=== PATIENT | female | born 1995 | race American Indian/Alaskan Native ===

== ENCOUNTER 2021-08-06 23:07 | Emergency (ER) | payer SELFPAY ==
--- NOTE | 2021-08-06 23:49 | Emergency Department Report ---
ED General Adult HPI - General Chief complaint: Psych Stated complaint: MENTAL EVAL Time Seen by Provider: 08/06/21 23:14 Source: patient Mode of arrival: Ambulatory Limitations: No Limitations - History of Present Illness Initial comments: patient presents with complaints of thoughts of hurting/killing herself. Denies a specific plan. Has a hx of bipolar disorder. Denies visual and auditory hallucinations. - Related Data Allergies Allergy/AdvReac Type Severity Reaction Status Date / Time No Known Allergies Allergy Unverified 08/06/21 23:22 ED Review of Systems ROS: Stated complaint: MENTAL EVAL Other details as noted in HPI Comment: All other systems reviewed and negative Constitutional: denies: chills, fever ED Past Medical Hx - Past Medical History Previous Medical History?: Yes Hx Psychiatric Treatment: Yes (BIPOLAR, ADHD, ANXIETY) - Surgical History Past Surgical History?: No - Social History Smoking Status: Never Smoker Substance Use Type: Alcohol ED Physical Exam - General Limitations: No Limitations General appearance: alert, in no apparent distress - Head Head exam: Present: atraumatic, normocephalic - Eye Eye exam: Present: PERRL, EOMI - ENT ENT exam: Present: mucous membranes moist, other (airway patent) - Neck Neck exam: Present: other (supple; no JVD) - Respiratory Respiratory exam: Present: other (good air entry, nml I:E, CTAB, no use of ANN) - Cardiovascular Cardiovascular Exam: Present: regular rate. Absent: rubs, gallop - GI/Abdominal GI/Abdominal exam: Present: soft, normal bowel sounds. Absent: distended, ten derness - Extremities Exam Extremities exam: Present: full ROM. Absent: tenderness - Back Exam Back exam: Present: full ROM. Absent: tenderness - Neurological Exam Neurological exam: Present: alert, oriented X3, CN II-XII intact. Absent: motor sensory deficit - Psychiatric Psychiatric exam: Present: flat affect, suicidal ideation. Absent: homicidal ideation - Skin Skin exam: Present: warm, normal color ED Course Vital Signs 08/06/21 23:13 Temperature 98.2 F Pulse Rate 104 H Respiratory 16 Rate Blood Pressure 136/67 Blood Pressure 136/67 [Right] O2 Sat by Pulse 98 Oximetry ED Medical Decision Making - Lab Data Result diagrams: 08/06/21 23:55 Laboratory Tests 08/06/21 08/06/21 08/06/21 23:55 23:55 23:55 WBC 5.1 RBC 4.71 Hgb 12.7 Hct 40.1 MCV 85 MCH 27 L MCHC 32 RDW 14.5 Plt Count 229 Lymph % (Auto) 30.6 [place] % (Auto) 4.3 Eos % (Auto) 1.0 Baso % (Auto) 0.7 Lymph # (Auto) 1.5 [place] # (Auto) 0.2 Eos # (Auto) 0.0 Baso # (Auto) 0.0 Seg Neutrophils % 63.4 Seg Neutrophils # 3.2 Salicylates < 0.3 L Acetaminophen 5.0 L Plasma/Serum Alcohol 08/06/21 23:55 WBC RBC Hgb Hct MCV MCH MCHC RDW Plt Count Lymph % (Auto) [place] % (Auto) Eos % (Auto) Baso % (Auto) Lymph # (Auto) [place] # (Auto) Eos # (Auto) Baso # (Auto) Seg Neutrophils % Seg Neutrophils # Salicylates Acetaminophen Plasma/Serum Alcohol 0.17 H UA, U tox, CMP all pending - Medical Decision Making 1013 signed. MH consulted. Critical care attestation.: If time is entered above; I have spent that time in minutes in the direct care of this critically ill patient, excluding procedure time. ED Disposition Clinical Impression: Suicidal thoughts, Alcohol intoxication Disposition: 30 STILL A PATIENT Is pt being admited?: No Does the pt Need Aspirin: No Condition: Stable Time of Disposition: 06:00 (Patient care transferred to Dr. Wadsworth (oncoming ER doctor). Sign out was given by me to him. )
[2021-08-07 00:16] LABS: Basophils % (Auto) 0.7 % (0.0-1.8); Hematocrit 40.1 % (30.3-42.9); Hemoglobin 12.7 gm/dl (10.1-14.3); Lymphocytes # (Auto) 1.5 K/mm3 (1.2-5.4); Lymphocytes % (Auto) 30.6 % (13.4-35.0); Mean Corpuscular HGB Conc 32 % (30-34); Mean Corpuscular Volume 85 fl (79-97); Monocytes # (Auto) 0.2 K/mm3 (0.0-0.8); Monocytes % (Auto) 4.3 % (0.0-7.3); Platelet Count 229 K/mm3 (140-440); Red Blood Count 4.71 M/mm3 (3.65-5.03); Red Cell Distribution Width 14.5 % (13.2-15.2)
[2021-08-07] MEDS ORDERED: SODIUM CHLORIDE 0.9% 1000 ML 1,000 ML IV ONE (04:41)
[2021-08-07 06:09] LABS: Bilirubin,Urine NEG (Negative); Blood,Urine NEG (Negative); Color,Urine Yellow (Yellow); Mucus,Urine 2+ /HPF; Protein,Urine <15 mg/dL mg/dL (Negative); Urobilinogen,Urine < 2.0 mg/dL (<2.0)
[2021-08-07 06:10] LABS: Amphetamine Screen,Urine PRESUMPTIVE NEGATIVE; Benzodiazepines Screen,Urine PRESUMPTIVE NEGATIVE; Cannabinoid Screen,Urine PRESUMPTIVE POSITIVE; Cocaine Screen,Urine PRESUMPTIVE NEGATIVE; HCG Qualitative,Urine Negative (Negative); Methadone Screen,Urine PRESUMPTIVE NEGATIVE; Opiate Screen,Urine PRESUMPTIVE NEGATIVE
--- NOTE | 2021-08-07 10:47 | Consultation ---
History of Present Illness - Reason for Consult Consult date: 08/07/21 Reason for consult: mental health evaluation - History of Present Psychiatric Illness The patient is a 25 year old female with history of bipolar, ADHD, and anxiety disorder. In my encounter with the patient, she is calm, alert and oriented x3. The patient reports that she was intoxicated last night. She states that she is visiting on vacation from [place]. She reports being complaint with psychotropic medications; she sees her psychiatrist monthly. She denies any current suicidal/homicidal ideation and denies hallucinations. PAST PSYCHIATRIC HISTORY: Diagnoses: Bipolar, ADHD, Anxiety Suicide attempts or Self-harm behavior: Yes Prior psychiatric hospitalizations: Yes Substance Abuse history:marijuana, Alcohol Previous psychiatric medications tried: Focalin, Cymbalta, Trileptal Outpatient treatment: Unknown PAST MEDICAL HISTORY: None reported Family Psychiatric History: None reported SOCIAL HISTORY Marital Status: Single Living Arrangements: Lives with mother Employment Status: Unknown Access to guns/weapons: Denies Education: 12th grade History of Abuse: Denies Legal History:Unknown REVIEW OF SYSTEMS Constitutional: Negative for weight loss ENT: Negative for stridor Respiratory: Negative for cough or hemoptysis All other systems reviewed and are negative MENTAL STATUS EXAMINATION General Appearance: Dressed appropriately, Behavior: calm and cooperative Mood: ok Affect and affective range: congruent with mood Thought Process: Goal directed Thought content:Denies Speech: Normal Suicidal Ideation: Denies Homicidal Ideation: Denies Hallucinations: Denies Delusions:None Insight and Judgment:Limited insight and judgment Memory: Limited Attention: Distracted Orientation: Alert, oriented Assessment (1)Bipolar disorder (2) Continue home meds. Treatment Plan DC 1013 Continue home meds Sitter: Defer to primary Medical: Per primary Disposition:Do not recommend acute psychiatric inpatient treatment. Assess will provide patient with psychiatric outpatient resources. Will sign off. Thank you for this consult. Case staffed with Dr. Witt Medications and Allergies Allergies Allergy/AdvReac Type Severity Reaction Status Date / Time No Known Allergies Allergy Unverified 08/06/21 23:22 Home Medications Medication Instructions Recorded Confirmed Last Taken Type DULoxetine [Cymbalta] 30 mg PO DAILY 30 Days #15 capsule 08/07/21 Unknown Rx OXcarbazepine [Trileptal] 150 mg PO DAILY 30 Days #15 tablet 08/07/21 Unknown Rx Mental Status Exam - Vital signs Last Vital Signs Temp 98.2 F 08/06/21 23:13 Pulse 104 H 08/06/21 23:13 Resp 16 08/06/21 23:13 BP 136/67 08/06/21 23:13 Pulse Ox 100 08/06/21 23:21 Results Result Diagrams: 08/06/21 23:55 Abnormal lab results 08/06/21 08/06/21 08/06/21 Range/Units 23:55 23:55 23:55 MCH 27 L (28-32) pg Salicylates < 0.3 L (2.8-20.0) mg/dL Acetaminophen 5.0 L (10.0-30.0) ug/mL Plasma/Serum Alcohol (0-0.07) % 08/06/21 Range/Units 23:55 MCH (28-32) pg Salicylates (2.8-20.0) mg/dL Acetaminophen (10.0-30.0) ug/mL Plasma/Serum Alcohol 0.17 H (0-0.07) % All other labs normal.
[2021-08-07 11:23] VITALS: BP 132/85
== END 2021-08-07 12:11 | disposition home or self-care (01) ==
LOC: ED 23:07
DX: R45.851 Suicidal ideations (principal); F10.129 Alcohol abuse with intoxication, unspecified; F31.9 Bipolar disorder, unspecified; Z79.899 Other long term (current) drug therapy
CPT/HCPCS: 80307; 80320; 81001; 81025; 85025; 99284; G0480